=== PATIENT | male | born 1985 | race Caucasian/White ===

== ENCOUNTER 2017-01-28 12:23 | Emergency (ER) | payer OTHER ==
[~2017-01-28] VITALS: Ht 170.2 cm; Wt 90.7 kg
--- NOTE | ~2017-01-28 | CR20 ---
[facility]. [facility] A Service of [facility] & [facility] RADIOLOGY TEXT RESULTS PATIENT: SUNDAY XIAO LOCATION: SED : [birth year] UNIT #: [id number] AGE: [address]: SILVERIO NICOLE SEX: M ORDER DR: [id number] [place] [id number] E MR#: [id number] Acc #: [id number] NAME: SUNDAY XIAO : 1985 SEX: M STUDY DATE/TIME: 01/28/2017 12:49 UNIT: SED ROOM: STUDY DESCRIPTION: CR Ankle Min 3 Views Lt Attending Physician: Silverio Nicole A.P.R.N. Ordering Physician: Silverio Nicole A.P.R.N. Primary Care Physician: [facility] MEDICAL IMAGING REPORT This report is preliminary unless electronic signature is present. EXAM Left ankle 01/28/2017 INDICATIONS 32-year-old male with a history of lateral pain after basketball injury today. Pain in the lateral ankle. TECHNIQUE Three views of the left ankle were performed. No comparisons. FINDINGS There is mild lateral soft tissue swelling but no acute fracture. The ankle mortise is intact. IMPRESSION 1. Lateral soft tissue swelling. Otherwise negative. Dictated by... Carmine Grewal M.D. THIS IS AN ELECTRONICALLY VERIFIED REPORT Carmine Grewal M.D. at 01/29/2017 1:48 PM KATIE/juan TD: 01/29/2017 08:32 JOB #: [id number] MEDICAL IMAGING REPORT Page 1 of 1
[~2017-01-28 12:23] MED LIST: ANTIBIOTIC; FLEXERIL10 MG PO; IBUPROFEN; NO MEDICATIONS; ORUDIS75 M1 PO; PAIN MED; PATANOL5 ML OP; ULTRAM PO; [UNRECOGNIZED DRUG - OTHER] OP
== END 2017-01-28 14:19 | disposition home or self-care (01) ==
LOC: SED 12:23
DX: S93.402A Sprain of unspecified ligament of left ankle, initial encounter (principal); X58.XXXA Exposure to other specified factors, initial encounter; Y93.67 Activity, basketball
CPT/HCPCS: 73610; 96372; 99283; J1885